=== PATIENT | female | born 1980 | race Caucasian/White ===

== ENCOUNTER 2020-04-24 16:43 | Emergency (ER) | payer OTHER, SELFPAY ==
[~2020-04-24] VITALS: Ht 167.6 cm; Wt 108.9 kg
[2020-04-24 18:16] LABS: BASOPHIL % 0.1 % (0.2-1.3); PLATELET COUNT 242 x10^3mcL (179-408)
[2020-04-24 18:21] LABS: CALCIUM 7.9 mg/dL (8.5-10.1); CARBON DIOXIDE 26.7 mmol/L (21-32); CHLORIDE SERUM 108 mmol/L (98-107); CREATININE SERUM 0.8 mg/dL (0.6-1.0); GFR1 > 60 mL/min; GLUCOSE SERUM 121 mg/dL (74-106); POTASSIUM SERUM 4.1 mmol/L (3.5-5.1); SODIUM SERUM 142 mmol/L (136-145)
[2020-04-24 18:26] LABS: ALKALINE PHOSPHATASE 86 U/L (46-116); ALT/SGPT 19 U/L (14-59); AST/SGOT 18 U/L (15-37); BILIRUBIN TOTAL 0.26 mg/dL (0.20-1.00); TOTAL PROTEIN, SERUM 6.6 g/dL (6.4-8.2)
[2020-04-24 18:42] LABS: RED CELL DISTRIBUTION WIDTH 17.7 % (12.3-17.7)
[2020-04-24 18:44] LABS: rbc morphology (normal/abnorm) NORMAL (NORMAL)
[2020-04-24 20:55] VITALS: Ht 167.6 cm; Wt 108.9 kg
[2020-04-24 21:09] VITALS: BP 122/70
== END 2020-04-24 21:09 | disposition home or self-care (01) ==
LOC: ED 16:43
PROVIDERS: Emergency Medicine
DX: R55 Syncope and collapse (principal); R50.9 Fever, unspecified; R51.9 Headache, unspecified
CPT/HCPCS: J7030